=== PATIENT | male | born 1955 ===

== ENCOUNTER 2021-06-06 05:39 | Inpatient (IN) | payer MEDICAID, MEDICARE ==
[2021-06-06] VITALS (13 sets, daily range): BP systolic 105–136; BP diastolic 54–72
[~2021-06-06] VITALS: Ht 182.9 cm; Wt 114.3 kg
[2021-06-06] MEDS: FENTANYL-0.9 % NACL/PF 100 ML IV PRN ×2 (06:01→21:22)
[2021-06-06] MEDS: propofol 1000mg/100ml bottle 100 ML IV PRN ×2 (06:02→21:21)
--- NOTE | 2021-06-06 06:03 | NUR ---
dr. aceves and dr. dickerson at bedside preparing to place chest tube to right chest. Propofol and fentanyl.
--- NOTE | 2021-06-06 07:18 | NUR ---
RT AT BEDSIDE TO PERFORM ABG PER MD ORDER. SPO2 87% ON FIO2 100% ETT TO VENT AC MODE. Addendum: 06/06/21 at [address] PHILLIP AWARE OF SPO2 87%.
[2021-06-06 07:22] LABS: BASOPHILS % (AUTO) 0.1 % (0-1); EOSINOPHILS % (AUTO) 0 % (0-6); MONOCYTES # (AUTO) 0.8 X10'3 (0-0.9)
[2021-06-06 07:24] LABS: HEMATOCRIT 55.9 % (42.0-52.0); LYMPHOCYTES # (AUTO) 0.4 X10'3 (1.1-4.8); LYMPHOCYTES % (AUTO) 2.3 % (21-51); MEAN CORPUSCULAR HGB CONC 33.2 g/dL (33.0-36.5); MEAN CORPUSCULAR VOLUME 93.3 FL (78-98); MEAN PLATELET VOLUME 10.4 FL (7.4-10.4); MONOCYTES % (AUTO) 4.5 % (2-12); NEUTROPHILS # (AUTO) 16.8 X10'3 (1.8-7.7); NEUTROPHILS % (AUTO) 93.1 % (42-75); PLATELET COUNT 226 X10'3 (140-440); RED BLOOD COUNT 5.99 X10'6 (4.70-6.10); RED CELL DISTRIBUTION WIDTH 14.5 % (11.5-14.5)
[2021-06-06 07:27] LABS: HEMOGLOBIN 18.6 g/dl (14.0-17.9)
[2021-06-06 07:29] LABS: ABG BASE EXCESS -16.1 mmol/L (-2.0-2.0); ABG HCO3 16.5 mmol/L (22.0-26.0); ABG OXYGEN SATURATION 87.3 % (94-97); ABG PCO2 (T) 62.3 mmHg (35.0-48.0); ABG PO2 (T) 61.6 mmHg (75.0-100.0); ALLEN'S TEST POSITIVE; FCOHb 0.3 % (0.0-3.9); FMetHb 0.2 % (0.0-1.5); FO2Hb 86.9 % (94-97); PATIENT TEMPERATURE 35.5; RESPIRATORY RATE 22 b/min; TIDAL VOLUME 400 mL; TOTAL HEMOGLOBIN 19.8 G/dl (14.0-18.0)
[2021-06-06 07:39] LABS: ALANINE AMINOTRANSFERASE 91 U/L (12-78); ALBUMIN 2.2 G/DL (3.4-5.0); ALBUMIN/GLOBULIN RATIO 0.5 (1.1-1.5); ALKALINE PHOSPHATASE 81 IU/L (46-116); ANION GAP 17 (8-16); ASPARTATE AMINO TRANSFERASE 122 U/L (10-37); BILIRUBIN,TOTAL 0.6 MG/DL (0.1-1.0); BLOOD UREA NITROGEN 70 MG/DL (7-18); BUN/CREATININE RATIO 26.9 (5.4-32.0); CALCIUM 8.3 MG/DL (8.5-10.1); CHLORIDE 115 MMOL/L (99-107); SODIUM 152 MMOL/L (135-145); TOTAL PROTEIN 6.6 G/DL (6.4-8.2); TROPONIN I 0.27 NG/ML (0.0-0.05); eGFR 25 ML/MIN
[2021-06-06] MEDS ORDERED: potassium Cl 40MEQ/1/2NS 520ml 520 ML IV PRN ×2 (07:50)
[2021-06-06] MEDS ORDERED: morphine 4 MG/ML inj SYRINge IV PRN (07:50)
[2021-06-06] MEDS ORDERED: sodium phosphate inj. 30 MMOL in dextrose 5%-water 250 ML IV PRN (07:50)
[2021-06-06] MEDS ORDERED: albuterol 2.5 MG/3 ML nebule NEB PRN (07:50)
[2021-06-06] MEDS ORDERED: potassium Cl 40MEQ/250ML bag 270 ML IV PRN ×2 (07:50)
[2021-06-06] MEDS ORDERED: ondansetron/PF 4mg/2ml inj IV PRN (07:50)
[2021-06-06] MEDS ORDERED: Neutra Phos packet PO PRN (07:50)
[2021-06-06] MEDS ORDERED: magnesium Cl slow-release 64mg tablet PO PRN (07:50)
[2021-06-06] MEDS ORDERED: magnesium 2GM in 50ml NS 50 ML IV PRN (07:50)
[2021-06-06] MEDS ORDERED: sodium phosphate inj. 15 MMOL in dextrose 5%-water 250 ML IV PRN (07:50)
[2021-06-06] MEDS ORDERED: magnesium hydroxide 30ml (MOM) UD suspension PO PRN (07:50)
[2021-06-06] MEDS ORDERED: acetaminophen 325mg tablet PO PRN ×2 (07:50)
[2021-06-06] MEDS ORDERED: magnesium 4gm in 100ml NS 100 ML IV PRN (07:50)
[2021-06-06] MEDS ORDERED: morphine 2 MG/ML inj. syringe IV PRN (07:50)
[2021-06-06 07:51] LABS: GLUCOSE 474 MG/DL (70-104)
--- NOTE | 2021-06-06 07:55 | NUR ---
DR LIGHT AT BEDSIDE TO ASSESS THE PATIENT AT THIS TIME.
[2021-06-06] MEDS ORDERED: enoxaparin 60mg/0.6ml syringe SUBCUT SCH (08:00)
[2021-06-06] MEDS: docusate sod 100mg capsule PO SCH ×2 (08:00→20:00)
[2021-06-06] MEDS: normal saline 1000ml 1,000 ML IV SCH ×2 (08:42→19:22)
[2021-06-06] MEDS: famotidine/PF 10 mg/ml inj IV SCH ×2 (08:42→21:19)
--- NOTE | 2021-06-06 08:50 | NUR ---
DR DEE AT BEDSIDE TO ASSESS PAT AT THIS TIME.
--- NOTE | 2021-06-06 09:07 | NUR ---
[facility] [phone].
[2021-06-06 09:50] LABS: LARGE PLATELETS FEW; PLATELET ESTIMATE NORMAL
[2021-06-06] MEDS ORDERED: methylPREDNISolone sod succ 125mg/2ml vial IV SCH (10:15)
--- NOTE | 2021-06-06 10:30 | NUR ---
Patient arrived to floor and placed on bedside monitor. O2 sats in the 70s and x-ray obtained to determine possible dislodgement of chest tube. Per radiologist, small increase in pneumothorax and Dr. Shine at bedside to place 2nd chest tube.
--- NOTE | 2021-06-06 12:24 | NUR ---
Initial: Pt with COVID admit for acute respiratory failure, rhabdomyolysis, pneumothorax, and hyperkalemia. Noted pt with elevated BG of 474 mg/dL on admit, possibly r/t receiving Solumedrol. Pt intubated and documented with an OG tube in place, no TF consult at this time. No documentation of how current wt in EMR was obtained, TF recommendations below were calculated using IBW for estimated nutrient needs. Will continue to follow closely. Recommendations: 1) IF TF, continuous Vital AF via OG tube with goal rate of 75 mL/hr to provide 1800 mL total volume/day, 2160 kcal, 135 g protein, and 1460 mL water. Begin at 35 mL/hr and advance by 20 mL Q8H as tolerated to goal rate 2) IF TF, additional 200 mL water flush Q4H; monitor serum Na and adjust as appropriate 3) IF TF, prealbumin q Friday/ and daily scaled weights 4) Routine bowel care Addendum: 06/06/21 at [address] Amended: Links added.
[2021-06-06] MEDS ORDERED: sodium polystyrene sulfonate 15gm/60ml oral suspension PO ONE (13:00)
[2021-06-06] MEDS ORDERED: dextrose 50%-water 50ml dispensing syringe IV PRN (13:00)
[2021-06-06] MEDS ORDERED: calcium chloride inj. 1,000 MG in normal saline 100ml IV soln 100 ML IV ONE (13:00)
[2021-06-06] MEDS ORDERED: Insulin Reg/NS 100units/100mL 100 ML IV SCH (13:00)
[2021-06-06 13:17] LABS: BASOPHILS # (AUTO) 0.1 X10'3 (0-0.2); BASOPHILS % (AUTO) 0.3 % (0-1); EOSINOPHILS % (AUTO) 0.1 % (0-6); HEMATOCRIT 53.8 % (42.0-52.0); LYMPHOCYTES # (AUTO) 0.4 X10'3 (1.1-4.8); LYMPHOCYTES % (AUTO) 2.6 % (21-51); MEAN CORPUSCULAR HEMOGLOBIN 30.4 PG (27.0-31.0); MEAN CORPUSCULAR HGB CONC 31.5 g/dL (33.0-36.5); MEAN CORPUSCULAR VOLUME 96.4 FL (78-98); MEAN PLATELET VOLUME 10.2 FL (7.4-10.4); MONOCYTES # (AUTO) 0.6 X10'3 (0-0.9); MONOCYTES % (AUTO) 4.2 % (2-12); NEUTROPHILS # (AUTO) 14.4 X10'3 (1.8-7.7); NEUTROPHILS % (AUTO) 92.8 % (42-75); PLATELET COUNT 216 X10'3 (140-440); RED BLOOD COUNT 5.58 X10'6 (4.70-6.10); RED CELL DISTRIBUTION WIDTH 15.1 % (11.5-14.5); WHITE BLOOD COUNT 15.5 X10'3 (4.5-11.0)
[2021-06-06 13:29] LABS: CLARITY,URINE SLIGHTLY CLOUDY (Clear); GLUCOSE, URINE 500 mg/dl (Neg); KETONES,URINE NEGATIVE (Neg); LEUKOCYTE ESTERASE ,URINE NEGATIVE (Neg); NITRITES, URINE NEGATIVE (Neg); OCCULT BLOOD,URINE LARGE (Neg); PH,URINE 5.5 (4.8-8.0); PROTEIN,URINE 100 mg/dl (Neg)
[2021-06-06 13:31] LABS: UA COLLECTION TYPE FOLEY CATH
[2021-06-06 13:32] LABS: COLOR,URINE DARK YELLOW (Yellow)
[2021-06-06 13:37] LABS: BACTERIA,URINE FEW /HPF (Neg); SQUAMOUS EPITHELIAL CELL,UR FEW /LPF (FEW); WBC,URINE 0-4 /HPF (0-4)
[2021-06-06 13:38] LABS: AMORPHOUS URATES 2+; HYALINE CASTS 0-3 /LPF (NEGATIVE)
[2021-06-06] MEDS ORDERED: calcium chloride inj. 1,000 MG in normal saline 100ml IV soln 90 ML IV ONE (13:40)
[2021-06-06 13:41] LABS: D-DIMER 9.65 MG/L FEU (0-0.50)
[2021-06-06 13:42] LABS: ALANINE AMINOTRANSFERASE 84 U/L (12-78); ALBUMIN/GLOBULIN RATIO 0.5 (1.1-1.5); ALKALINE PHOSPHATASE 66 IU/L (46-116); ANION GAP 18 (8-16); ASPARTATE AMINO TRANSFERASE 139 U/L (10-37); BILIRUBIN,TOTAL 0.6 MG/DL (0.1-1.0); BLOOD UREA NITROGEN 80 MG/DL (7-18); CALCIUM 7.9 MG/DL (8.5-10.1); CHLORIDE 115 MMOL/L (99-107); CREATININE 2.96 MG/DL (0.60-1.10); SODIUM 150 MMOL/L (135-145); TOTAL CARBON DIOXIDE 17.4 MMOL/L (24-32); TOTAL PROTEIN 6.2 G/DL (6.4-8.2); eGFR 21 ML/MIN
[2021-06-06 13:52] LABS: C-REACTIVE PROTEIN 28.29 MG/DL (0.0-0.5)
[2021-06-06 14:17] LABS: GLUCOSE 494 MG/DL (70-104)
[2021-06-06 14:18] LABS: POTASSIUM 6.4 MMOL/L (3.5-5.1)
--- NOTE | 2021-06-06 14:30 | NUR ---
Critical K 6.4 and Glucose of 494. Kaexylate and Ca ordered. Insulin drip ordered for glucose.
[2021-06-06] MEDS: methylPREDNISolone sod succ/PF 40mg inj. IV SCH (15:23)
[2021-06-06] MEDS: CefTRIAXone 2gm/D5W 50ml BAG 50 ML IV SCH (15:42)
--- NOTE | 2021-06-06 16:30 | NUR ---
Dr. Shine aware patient's o2 saturation 90-94, 100% Fi02 and PEEP 14. Nephrology consult also obtained as MD is aware of decreased UO and elevated creatinine. Dr. Degroot to assess patient in the AM for possible dialysis if K not improved.
[2021-06-06] MEDS ORDERED: normal saline 1000ml 1,000 ML IVB ONE (16:45)
[2021-06-06] MEDS ORDERED: dextrose 50%-water 50ml dispensing syringe IV ONE (17:10)
[2021-06-06] MEDS ORDERED: sodium bicarbonate (8.4%) 1 mEq/ml syringe IV ONE (17:10)
[2021-06-06] MEDS ORDERED: insulin regular, human 10 units/0.1 ml syringe IV ONE (17:10)
--- NOTE | 2021-06-06 18:30 | NUR ---
Patient in room CICU 2009. I have received report from Km GUNDERSON and had the opportunity to ask questions and assume patient care.
--- NOTE | 2021-06-06 18:30 | NUR ---
Problems reprioritized. Patient report given, questions answered & plan of care reviewed with Elva GUNDERSON.
[2021-06-06] MEDS: enoxaparin 40mg/0.4ml syringe SUBCUT SCH (21:20)
[2021-06-06] MEDS: nystatin 15 GM powder TP SCH (21:21)
[2021-06-07] VITALS (24 sets, daily range): BP systolic 83–132; BP diastolic 46–77
[2021-06-07] MEDS: normal saline 1000ml 1,000 ML IV SCH (02:32)
[2021-06-07 03:29] LABS: BASOPHILS % (AUTO) 0.1 % (0-1); EOSINOPHILS % (AUTO) 0 % (0-6); HEMATOCRIT 50.1 % (42.0-52.0); HEMOGLOBIN 16.2 g/dl (14.0-17.9); LYMPHOCYTES # (AUTO) 0.4 X10'3 (1.1-4.8); LYMPHOCYTES % (AUTO) 3.1 % (21-51); MEAN CORPUSCULAR HEMOGLOBIN 30.4 PG (27.0-31.0); MEAN CORPUSCULAR HGB CONC 32.3 g/dL (33.0-36.5); MONOCYTES # (AUTO) 0.7 X10'3 (0-0.9); MONOCYTES % (AUTO) 5.7 % (2-12); NEUTROPHILS # (AUTO) 11.4 X10'3 (1.8-7.7); NEUTROPHILS % (AUTO) 91.1 % (42-75); PLATELET COUNT 205 X10'3 (140-440); RED BLOOD COUNT 5.33 X10'6 (4.70-6.10); RED CELL DISTRIBUTION WIDTH 14.9 % (11.5-14.5); WHITE BLOOD COUNT 12.6 X10'3 (4.5-11.0)
[2021-06-07] MEDS: FENTANYL-0.9 % NACL/PF 100 ML IV PRN ×2 (03:34→20:41)
[2021-06-07 03:44] LABS: D-DIMER 3.34 MG/L FEU (0-0.50); PARTIAL THROMBOPLASTIN TIME 31 SECONDS (22-32)
[2021-06-07 03:50] LABS: ALBUMIN 1.7 G/DL (3.4-5.0); ANION GAP 13 (8-16); BLOOD UREA NITROGEN 79 MG/DL (7-18); BUN/CREATININE RATIO 24.5 (5.4-32.0); CALCIUM 7.9 MG/DL (8.5-10.1); CHLORIDE 123 MMOL/L (99-107); CREATININE 3.23 MG/DL (0.60-1.10); GLUCOSE 99 MG/DL (70-104); PHOSPHORUS 6.9 MG/DL (2.3-4.5); POTASSIUM 5.2 MMOL/L (3.5-5.1); TOTAL CARBON DIOXIDE 22.8 MMOL/L (24-32); TRIGLYCERIDES 186 MG/DL (20-135); eGFR 19 ML/MIN
[2021-06-07 03:52] LABS: SODIUM 159 MMOL/L (135-145)
[2021-06-07 03:53] LABS: C-REACTIVE PROTEIN 26.46 MG/DL (0.0-0.5)
[2021-06-07 04:07] LABS: HEMOGLOBIN A1C 8.7 % (4.5-6.2)
[2021-06-07 04:08] LABS: ABG BASE EXCESS -9.6 mmol/L (-2.0-2.0); ABG HCO3 20.4 mmol/L (22.0-26.0); ABG PCO2 (T) 60.1 mmHg (35.0-48.0); ABG PO2 (T) 68.5 mmHg (75.0-100.0); ALLEN'S TEST POSITIVE; FCOHb 0.5 % (0.0-3.9); FMetHb 0.1 % (0.0-1.5); FO2Hb 92.4 % (94-97); PATIENT TEMPERATURE 36.6; PEEP 14 cm H2O; RESPIRATORY RATE 26 b/min; TIDAL VOLUME 450 mL; TOTAL HEMOGLOBIN 16.3 G/dl (14.0-18.0)
--- NOTE | 2021-06-07 06:21 | NUR ---
Problems reprioritized. Patient report given, questions answered & plan of care reviewed with Gloria GUNDERSON.
[2021-06-07] MEDS: docusate sod 100mg capsule PO SCH (08:00)
[2021-06-07 09:02] LABS: CREATINE KINASE 4422 U/L (39-308)
[2021-06-07] MEDS: CefTRIAXone 2gm/D5W 50ml BAG 50 ML IV SCH (09:38)
[2021-06-07] MEDS: nystatin 15 GM powder TP SCH ×2 (09:38→14:28)
[2021-06-07] MEDS: enoxaparin 40mg/0.4ml syringe SUBCUT SCH ×2 (09:38→20:41)
[2021-06-07] MEDS: sodium chloride 0.45% 1,000 ML IV SCH ×3 (09:38→20:41)
[2021-06-07] MEDS: famotidine/PF 10 mg/ml inj IV SCH ×2 (09:39→20:41)
[2021-06-07] MEDS: methylPREDNISolone sod succ/PF 40mg inj. IV SCH ×3 (09:39→17:29)
[2021-06-07] MEDS ORDERED: docusate sodium 100mg/10ml UD cup PO SCH (09:45)
[2021-06-07] MEDS ORDERED: insulin Lispro (HumaLOG) vial - multi-dose SQ SCH (10:15)
[2021-06-07] MEDS ORDERED: MESSAGE TO PHARMACY PO ONE (10:15)
[2021-06-07] MEDS ORDERED: dextrose ORAL solution 15 GM/59 ML bottle PO PRN ×2 (10:15)
[2021-06-07] MEDS ORDERED: glucagon, human recombinant 1mg kit SUBCUT PRN (10:15)
[2021-06-07] MEDS ORDERED: dextrose 50%-water 50ml dispensing syringe IV PRN ×2 (10:15)
[2021-06-07 10:56] LABS: ABG BASE EXCESS -10.7 mmol/L (-2.0-2.0); ABG HCO3 18.6 mmol/L (22.0-26.0); ABG OXYGEN SATURATION 89.9 % (94-97); ABG PCO2 (T) 53.6 mmHg (35.0-48.0); ABG PO2 (T) 59.6 mmHg (75.0-100.0); ALLEN'S TEST Modified; FCOHb 0.3 % (0.0-3.9); FMetHb 0.2 % (0.0-1.5); FO2Hb 89.5 % (94-97); PEEP 14 cm H2O; RESPIRATORY RATE 26 b/min; TIDAL VOLUME 450 mL; TOTAL HEMOGLOBIN 17.6 G/dl (14.0-18.0)
--- NOTE | 2021-06-07 11:52 | NUR ---
TF consult: Pt remains intubated, to start tube feeding today per MD at critical care rounds, TF recommendations below. Pt still without a scaled weight, will adjust TF recommendations as appropriate once scaled weight is obtained. Serum Na up to 159 MMOL/L today, pt started on 300 mL water flush per MD. Noted pt with A1c 8.7% though PMH unknown at this time given intubation. Pt would benefit from DM education once stable following extubation. Pt will need DM dx by physician prior to RD providing education IF this is a new diagnosis. Still no documented BM, pt with routine bowel care available however held d/t meds not being able to be crushed. D/w clinical pharmacist who will adjust rx as appropriate given pt with an OG tube. Noted wound care has been consulted for sacrum PU and IAD, pending assessment at this time. Will continue to follow closely and make recommendations as appropriate. Recommendations: 1) Continuous Vital AF via OG tube with goal rate of 75 mL/hr to provide 1800 mL total volume/day, 2160 kcal, 135 g protein, and 1460 mL water. 2) Additional 300 mL water flush Q4H per MD; monitor serum Na 3) Prealbumin q Friday/, daily scaled weights 4) Monitor for scaled weight and adjust TF recommendations as appropriate 5) Routine bowel care 6) DM education once stable following extubation, A1c 8.7% Addendum: 06/07/21 at [address] Amended: Links added.
[2021-06-07] MEDS ORDERED: UNABLE TO OBTAIN PO (11:57)
[2021-06-07 13:49] LABS: PREALBUMIN 6.1 MG/DL (19-36)
[2021-06-07] MEDS ORDERED: ringers solution, lacted 1,000 ML IV STA (14:18)
[2021-06-07] MEDS ORDERED: acetaminophen 325mg tablet OGT PRN ×2 (15:52)
[2021-06-07] MEDS ORDERED: dextrose ORAL solution 15 GM/59 ML bottle OGT PRN ×2 (15:52)
--- NOTE | 2021-06-07 18:30 | NUR ---
Patient in room CICU 2009. I have received report from Gloria GUNDERSON and had the opportunity to ask questions and assume patient care.
[2021-06-07] MEDS: propofol 1000mg/100ml bottle 100 ML IV PRN (19:40)
[2021-06-07] MEDS: docusate sodium 100mg/10ml UD cup OGT SCH (20:40)
[2021-06-07] MEDS: insulin regular, human U-100 3ml vial - multi-dose SQ SCH (21:17)
[2021-06-07] MEDS: insulin glargine (Lantus) pen - multi-dose SQ SCH (21:18)
[2021-06-08] VITALS (24 sets, daily range): BP systolic 83–122; BP diastolic 44–62
[2021-06-08] MEDS: propofol 1000mg/100ml bottle 100 ML IV PRN ×6 (02:31→23:35)
[2021-06-08] MEDS: nystatin 15 GM powder TP SCH ×4 (02:31→21:31)
[2021-06-08] MEDS: methylPREDNISolone sod succ/PF 40mg inj. IV SCH ×4 (02:36→23:37)
[2021-06-08 02:48] LABS: ABG BASE EXCESS -11.3 mmol/L (-2.0-2.0); ABG HCO3 17.5 mmol/L (22.0-26.0); ABG PCO2 (T) 47.7 mmHg (35.0-48.0); ABG PO2 (T) 187.7 mmHg (75.0-100.0); ALLEN'S TEST POSITIVE; FCOHb 0.4 % (0.0-3.9); FMetHb 0.3 % (0.0-1.5); FO2Hb 98.3 % (94-97); PATIENT TEMPERATURE 35.9; PEEP 14 cm H2O; RESPIRATORY RATE 26 b/min; TIDAL VOLUME 450 mL; TOTAL HEMOGLOBIN 15.2 G/dl (14.0-18.0)
[2021-06-08 03:08] LABS: BASOPHILS % (AUTO) 0.1 % (0-1); EOSINOPHILS % (AUTO) 0 % (0-6); HEMATOCRIT 44.8 % (42.0-52.0); HEMOGLOBIN 14.4 g/dl (14.0-17.9); LYMPHOCYTES # (AUTO) 0.3 X10'3 (1.1-4.8); MEAN CORPUSCULAR HEMOGLOBIN 30.4 PG (27.0-31.0); MEAN CORPUSCULAR HGB CONC 32.1 g/dL (33.0-36.5); MEAN CORPUSCULAR VOLUME 94.9 FL (78-98); MEAN PLATELET VOLUME 10.2 FL (7.4-10.4); MONOCYTES # (AUTO) 0.6 X10'3 (0-0.9); MONOCYTES % (AUTO) 5.7 % (2-12); NEUTROPHILS # (AUTO) 9.6 X10'3 (1.8-7.7); NEUTROPHILS % (AUTO) 91.2 % (42-75); PLATELET COUNT 144 X10'3 (140-440); RED BLOOD COUNT 4.73 X10'6 (4.70-6.10); RED CELL DISTRIBUTION WIDTH 15.2 % (11.5-14.5); WHITE BLOOD COUNT 10.5 X10'3 (4.5-11.0)
[2021-06-08 03:23] LABS: ALANINE AMINOTRANSFERASE 53 U/L (12-78); ALBUMIN 1.4 G/DL (3.4-5.0); ALBUMIN/GLOBULIN RATIO 0.3 (1.1-1.5); ALKALINE PHOSPHATASE 54 IU/L (46-116); ANION GAP 15 (8-16); ASPARTATE AMINO TRANSFERASE 79 U/L (10-37); BILIRUBIN,TOTAL 0.4 MG/DL (0.1-1.0); BLOOD UREA NITROGEN 102 MG/DL (7-18); C-REACTIVE PROTEIN 15.24 MG/DL (0.0-0.5); CHLORIDE 117 MMOL/L (99-107); CREATININE 3.93 MG/DL (0.60-1.10); GLUCOSE 267 MG/DL (70-104); MAGNESIUM 2.9 MG/DL (1.5-2.4); PHOSPHORUS 7.3 MG/DL (2.3-4.5); POTASSIUM 5.5 MMOL/L (3.5-5.1); SODIUM 150 MMOL/L (135-145); TOTAL PROTEIN 5.9 G/DL (6.4-8.2); eGFR 15 ML/MIN
[2021-06-08 03:37] LABS: D-DIMER 4.26 MG/L FEU (0-0.50); PARTIAL THROMBOPLASTIN TIME 36 SECONDS (22-32)
[2021-06-08] MEDS: insulin regular, human U-100 3ml vial - multi-dose SQ SCH ×4 (03:52→21:27)
[2021-06-08] MEDS: FENTANYL-0.9 % NACL/PF 100 ML IV PRN ×4 (04:23→22:28)
[2021-06-08] MEDS: sodium chloride 0.45% 1,000 ML IV SCH (06:40)
--- NOTE | 2021-06-08 07:10 | NUR ---
Problems reprioritized. Patient report given, questions answered & plan of care reviewed with Germain GUNDERSON.
[2021-06-08] MEDS ORDERED: lactulose 20gm/30ml cup OGT PRN (07:50)
[2021-06-08] MEDS ORDERED: bisacodyl 10mg suppository rectal RC PRN (07:50)
[2021-06-08] MEDS: famotidine/PF 10 mg/ml inj IV SCH ×2 (09:39→19:49)
[2021-06-08] MEDS: docusate sodium 100mg/10ml UD cup OGT SCH ×2 (09:39→19:49)
[2021-06-08] MEDS: enoxaparin 40mg/0.4ml syringe SUBCUT SCH (09:40)
--- NOTE | 2021-06-08 10:38 | NUR ---
Chest tubes to air seal and peep to [address] Shine.
--- NOTE | 2021-06-08 11:02 | NUR ---
Geovani with Dr. Ruiz regarding CVVH, requests Dr. Shine to place Gary catheter. Addendum: 06/08/21 at 1231 by Germain Gonzales RN 1230: Update: no need to place Gary at this time. Orders received.
[2021-06-08 12:06] LABS: CREATINE KINASE 2835 U/L (39-308)
[2021-06-08] MEDS: sodium bicarbonate (8.4%) inj. 100 MEQ in dextrose 5%-water 1,000 ML IV SCH (13:33)
[2021-06-08] MEDS: SODIUM ZIRCONIUM CYCLOSILICATE 10 GM POWD.PACK PO SCH ×2 (13:57→21:21)
[2021-06-08] MEDS: heparin, porcine 5000 units/ml vial SQ SCH ×2 (15:43→23:37)
[2021-06-08] MEDS: insulin glargine (Lantus) pen - multi-dose SQ SCH (21:29)
[2021-06-09] VITALS (24 sets, daily range): BP systolic 90–125; BP diastolic 49–67
[2021-06-09] MEDS: sodium bicarbonate (8.4%) inj. 100 MEQ in dextrose 5%-water 1,000 ML IV SCH ×3 (00:43→11:53)
[2021-06-09 03:11] LABS: BASOPHILS % (AUTO) 0.1 % (0-1); EOSINOPHILS % (AUTO) 0 % (0-6); HEMATOCRIT 40.4 % (42.0-52.0); HEMOGLOBIN 13.4 g/dl (14.0-17.9); LYMPHOCYTES # (AUTO) 0.2 X10'3 (1.1-4.8); LYMPHOCYTES % (AUTO) 2.2 % (21-51); MEAN CORPUSCULAR HEMOGLOBIN 30.5 PG (27.0-31.0); MEAN CORPUSCULAR HGB CONC 33.2 g/dL (33.0-36.5); MEAN CORPUSCULAR VOLUME 92.1 FL (78-98); MEAN PLATELET VOLUME 10.5 FL (7.4-10.4); MONOCYTES # (AUTO) 0.6 X10'3 (0-0.9); MONOCYTES % (AUTO) 6.7 % (2-12); NEUTROPHILS # (AUTO) 8.2 X10'3 (1.8-7.7); PLATELET COUNT 139 X10'3 (140-440); RED BLOOD COUNT 4.38 X10'6 (4.70-6.10); RED CELL DISTRIBUTION WIDTH 14.7 % (11.5-14.5)
[2021-06-09] MEDS: insulin regular, human U-100 3ml vial - multi-dose SQ SCH ×4 (03:12→23:58)
[2021-06-09 03:13] LABS: ABG BASE EXCESS -7.6 mmol/L (-2.0-2.0); ABG HCO3 20.3 mmol/L (22.0-26.0); ABG OXYGEN SATURATION 94.5 % (94-97); ABG PCO2 (T) 48.7 mmHg (35.0-48.0); ABG PO2 (T) 72.3 mmHg (75.0-100.0); ALLEN'S TEST POSITIVE; FCOHb 0.5 % (0.0-3.9); FMetHb 0.2 % (0.0-1.5); FO2Hb 93.8 % (94-97); PATIENT TEMPERATURE 36.1; PEEP 10 cm H2O; RESPIRATORY RATE 26 b/min; TIDAL VOLUME 450 mL
[2021-06-09 03:24] LABS: D-DIMER 1.91 MG/L FEU (0-0.50); PARTIAL THROMBOPLASTIN TIME 33 SECONDS (22-32)
[2021-06-09 03:28] LABS: ALANINE AMINOTRANSFERASE 46 U/L (12-78); ALBUMIN 1.3 G/DL (3.4-5.0); ALBUMIN/GLOBULIN RATIO 0.4 (1.1-1.5); ALKALINE PHOSPHATASE 59 IU/L (46-116); ANION GAP 9 (8-16); ASPARTATE AMINO TRANSFERASE 55 U/L (10-37); BILIRUBIN,TOTAL 0.3 MG/DL (0.1-1.0); BLOOD UREA NITROGEN 112 MG/DL (7-18); BUN/CREATININE RATIO 27.1 (5.4-32.0); CALCIUM 6.5 MG/DL (8.5-10.1); CHLORIDE 114 MMOL/L (99-107); CREATININE 4.14 MG/DL (0.60-1.10); GLUCOSE 406 MG/DL (70-104); POTASSIUM 5.3 MMOL/L (3.5-5.1); SODIUM 146 MMOL/L (135-145); TOTAL CARBON DIOXIDE 23.2 MMOL/L (24-32); eGFR 14 ML/MIN
[2021-06-09 03:36] LABS: C-REACTIVE PROTEIN 10.01 MG/DL (0.0-0.5); MAGNESIUM 2.9 MG/DL (1.5-2.4); PHOSPHORUS 6.3 MG/DL (2.3-4.5)
[2021-06-09 03:40] LABS: CREATINE KINASE 2452 U/L (39-308)
[2021-06-09] MEDS: FENTANYL-0.9 % NACL/PF 100 ML IV PRN ×4 (04:43→19:01)
[2021-06-09] MEDS: propofol 1000mg/100ml bottle 100 ML IV PRN ×4 (05:08→23:46)
[2021-06-09] MEDS: famotidine/PF 10 mg/ml inj IV SCH ×2 (09:43→20:17)
[2021-06-09] MEDS: methylPREDNISolone sod succ/PF 40mg inj. IV SCH ×3 (09:43→23:44)
[2021-06-09] MEDS: docusate sodium 100mg/10ml UD cup OGT SCH ×2 (09:43→20:17)
[2021-06-09] MEDS: nystatin 15 GM powder TP SCH ×3 (09:44→22:12)
[2021-06-09] MEDS: heparin, porcine 5000 units/ml vial SQ SCH ×3 (09:44→23:45)
[2021-06-09] MEDS: SODIUM ZIRCONIUM CYCLOSILICATE 10 GM POWD.PACK PO SCH ×3 (09:45→22:11)
[2021-06-09] MEDS ORDERED: dextrose 50%-water 50ml dispensing syringe IV PRN (11:00)
--- NOTE | 2021-06-09 13:15 | NUR ---
Reassessment: Pt remains intubated. Noted TF hasn't made it to goal rate, previously up to 55 mL/hr though currently running at 40 mL/hr. Tolerance to TF varies with GRV range of 125-850 mL over the last 24 hours, with 350 mL GRV at most recent check. Still no documented BM since admit. Pt receiving routine Colace with first dose of PRN Lactulose and Dulcolax suppository given today. Hopeful that tolerance to TF will improve as constipation resolves. Noted per MD note pt possibly to start dialysis in the future though not initiated at this time. MD sidra CHILEL adjust TF recommendations if needed if dialysis is initiated. 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 Will continue to follow closely and make recommendations as appropriate. Recommendations: 1) Continuous Vital AF via OG tube with goal rate of 75 mL/hr to provide 1800 mL total volume/day, 2160 kcal, 135 g protein, and 1460 mL water. 2) Additional 300 mL water flush Q4H per MD; monitor serum Na 3) Prealbumin q Friday/, daily scaled weights 4) Monitor for scaled weight and possible dialysis and adjust TF recommendations as appropriate 5) Routine bowel care 6) DM education once stable following extubation, A1c 8.7% Addendum: 06/09/21 at [address] Amended: Links added.
[2021-06-09] MEDS: Insulin Reg/NS 100units/100mL 100 ML IV SCH ×4 (13:44→21:33)
[2021-06-09] MEDS ORDERED: albumin (human) 25% 100 ML IV solution IV ONE (16:00)
[2021-06-09] MEDS: insulin glargine (Lantus) pen - multi-dose SQ SCH (21:00)
[2021-06-10] VITALS (24 sets, daily range): BP systolic 91–178; BP diastolic 46–86
[2021-06-10] MEDS: Insulin Reg/NS 100units/100mL 100 ML IV SCH ×3 (00:49→08:58)
[2021-06-10] MEDS: FENTANYL-0.9 % NACL/PF 100 ML IV PRN ×5 (00:50→23:50)
[2021-06-10 02:36] LABS: ABG BASE EXCESS -2.6 mmol/L (-2.0-2.0); ABG HCO3 25.9 mmol/L (22.0-26.0); ABG OXYGEN SATURATION 96.8 % (94-97); ABG PCO2 (T) 58.6 mmHg (35.0-48.0); ABG PO2 (T) 87.7 mmHg (75.0-100.0); ALLEN'S TEST POSITIVE; FCOHb 0.7 % (0.0-3.9); FMetHb 0.2 % (0.0-1.5); FO2Hb 95.9 % (94-97); PEEP 10 cm H2O; RESPIRATORY RATE 26 b/min; TIDAL VOLUME 450 mL
[2021-06-10] MEDS: sodium bicarbonate (8.4%) inj. 100 MEQ in dextrose 5%-water 1,000 ML IV SCH ×3 (03:57→19:34)
[2021-06-10 03:59] LABS: BASOPHILS % (AUTO) 0.1 % (0-1); EOSINOPHILS % (AUTO) 0 % (0-6); HEMATOCRIT 35.8 % (42.0-52.0); HEMOGLOBIN 11.5 g/dl (14.0-17.9); LYMPHOCYTES # (AUTO) 0.8 X10'3 (1.1-4.8); LYMPHOCYTES % (AUTO) 6.2 % (21-51); MEAN CORPUSCULAR HEMOGLOBIN 30.2 PG (27.0-31.0); MEAN CORPUSCULAR HGB CONC 32.1 g/dL (33.0-36.5); MEAN CORPUSCULAR VOLUME 93.8 FL (78-98); MEAN PLATELET VOLUME 7.7 FL (7.4-10.4); MONOCYTES # (AUTO) 0.8 X10'3 (0-0.9); NEUTROPHILS # (AUTO) 11.3 X10'3 (1.8-7.7); NEUTROPHILS % (AUTO) 87.7 % (42-75); PLATELET COUNT 235 X10'3 (140-440); RED BLOOD COUNT 3.82 X10'6 (4.70-6.10); RED CELL DISTRIBUTION WIDTH 14.3 % (11.5-14.5); WHITE BLOOD COUNT 12.8 X10'3 (4.5-11.0)
[2021-06-10 04:03] LABS: D-DIMER 1.42 MG/L FEU (0-0.50); PARTIAL THROMBOPLASTIN TIME 37 SECONDS (22-32)
[2021-06-10 04:10] LABS: ALANINE AMINOTRANSFERASE 77 U/L (12-78); ALBUMIN/GLOBULIN RATIO 0.5 (1.1-1.5); ALKALINE PHOSPHATASE 76 IU/L (46-116); ANION GAP 12 (8-16); ASPARTATE AMINO TRANSFERASE 36 U/L (10-37); BILIRUBIN,TOTAL 0.5 MG/DL (0.1-1.0); BLOOD UREA NITROGEN 24 MG/DL (7-18); BUN/CREATININE RATIO 31.6 (5.4-32.0); C-REACTIVE PROTEIN 8.57 MG/DL (0.0-0.5); CALCIUM 8.3 MG/DL (8.5-10.1); CHLORIDE 112 MMOL/L (99-107); CREATINE KINASE 18 U/L (39-308); CREATININE 0.76 MG/DL (0.60-1.10); GLUCOSE 113 MG/DL (70-104); MAGNESIUM 1.7 MG/DL (1.5-2.4); PHOSPHORUS 2.4 MG/DL (2.3-4.5); SODIUM 149 MMOL/L (135-145); TOTAL CARBON DIOXIDE 24.9 MMOL/L (24-32); TOTAL PROTEIN 5.9 G/DL (6.4-8.2); eGFR > 90 ML/MIN
[2021-06-10 04:24] LABS: POTASSIUM 2.7 MMOL/L (3.5-5.1)
[2021-06-10] MEDS: propofol 1000mg/100ml bottle 100 ML IV PRN ×3 (05:10→18:23)
--- NOTE | 2021-06-10 06:30 | NUR ---
Propofol at the start of this shift was running at 35 mcg/kg/min, or 18.9 mg/hr. Was not increased at this time by this RN.
[2021-06-10] MEDS: nystatin 15 GM powder TP SCH ×3 (08:10→21:02)
[2021-06-10] MEDS: docusate sodium 100mg/10ml UD cup OGT SCH ×2 (08:10→21:01)
[2021-06-10] MEDS: methylPREDNISolone sod succ/PF 40mg inj. IV SCH ×3 (08:10→23:54)
[2021-06-10] MEDS: famotidine/PF 10 mg/ml inj IV SCH ×2 (08:11→21:02)
[2021-06-10] MEDS: heparin, porcine 5000 units/ml vial SQ SCH ×3 (08:11→23:55)
[2021-06-10] MEDS ORDERED: potassium Cl 20 mEq SR tablet PO STA (08:31)
[2021-06-10] MEDS: DOPamine 400mg/D5W 250ml 250 ML IV SCH ×2 (08:38→23:19)
[2021-06-10] MEDS: SODIUM ZIRCONIUM CYCLOSILICATE 10 GM POWD.PACK PO SCH ×3 (08:38→21:01)
[2021-06-10 14:29] LABS: BASOPHILS % (AUTO) 0 % (0-1); EOSINOPHILS % (AUTO) 0 % (0-6); HEMATOCRIT 38.3 % (42.0-52.0); HEMOGLOBIN 12.9 g/dl (14.0-17.9); LYMPHOCYTES # (AUTO) 0.2 X10'3 (1.1-4.8); LYMPHOCYTES % (AUTO) 2.2 % (21-51); MEAN CORPUSCULAR HEMOGLOBIN 30.4 PG (27.0-31.0); MEAN CORPUSCULAR HGB CONC 33.6 g/dL (33.0-36.5); MEAN CORPUSCULAR VOLUME 90.7 FL (78-98); MEAN PLATELET VOLUME 9.5 FL (7.4-10.4); MONOCYTES % (AUTO) 9.5 % (2-12); NEUTROPHILS # (AUTO) 8.8 X10'3 (1.8-7.7); NEUTROPHILS % (AUTO) 88.3 % (42-75); PLATELET COUNT 120 X10'3 (140-440); RED BLOOD COUNT 4.22 X10'6 (4.70-6.10); RED CELL DISTRIBUTION WIDTH 14.3 % (11.5-14.5)
[2021-06-10 14:31] LABS: PARTIAL THROMBOPLASTIN TIME 29 SECONDS (22-32)
[2021-06-10 14:36] LABS: ALANINE AMINOTRANSFERASE 64 U/L (12-78); ALBUMIN 1.2 G/DL (3.4-5.0); ALBUMIN/GLOBULIN RATIO 0.3 (1.1-1.5); ALKALINE PHOSPHATASE 67 IU/L (46-116); ANION GAP 8 (8-16); ASPARTATE AMINO TRANSFERASE 96 U/L (10-37); BILIRUBIN,TOTAL 0.4 MG/DL (0.1-1.0); BLOOD UREA NITROGEN 105 MG/DL (7-18); BUN/CREATININE RATIO 32.8 (5.4-32.0); CALCIUM 6.2 MG/DL (8.5-10.1); CHLORIDE 112 MMOL/L (99-107); GLUCOSE 125 MG/DL (70-104); POTASSIUM 4.5 MMOL/L (3.5-5.1); SODIUM 148 MMOL/L (135-145); TOTAL PROTEIN 4.7 G/DL (6.4-8.2); eGFR 19 ML/MIN
[2021-06-10 14:55] LABS: CREATINE KINASE 2252 U/L (39-308); MAGNESIUM 2.9 MG/DL (1.5-2.4); PHOSPHORUS 5.2 MG/DL (2.3-4.5)
[2021-06-10 15:17] LABS: C-REACTIVE PROTEIN 3.78 MG/DL (0.0-0.5)
[2021-06-10 15:23] LABS: TOTAL CELLS COUNTED 100
[2021-06-10 15:24] LABS: PLATELET ESTIMATE DECREASED
[2021-06-10] MEDS: insulin regular, human U-100 3ml vial - multi-dose SQ SCH (21:08)
[2021-06-10] MEDS: insulin glargine (Lantus) pen - multi-dose SQ SCH (21:09)
[2021-06-11] VITALS (23 sets, daily range): BP systolic 82–168; BP diastolic 42–95
[2021-06-11] MEDS: insulin regular, human U-100 3ml vial - multi-dose SQ SCH ×2 (02:15→09:18)
[2021-06-11 02:48] LABS: ABG BASE EXCESS 1.2 mmol/L (-2.0-2.0); ABG OXYGEN SATURATION 93.5 % (94-97); ABG PCO2 (T) 55.2 mmHg (35.0-48.0); ABG PO2 (T) 59.4 mmHg (75.0-100.0); ALLEN'S TEST POSITIVE; FCOHb 0.6 % (0.0-3.9); FMetHb 0.1 % (0.0-1.5); FO2Hb 92.8 % (94-97); PATIENT TEMPERATURE 35.3; PEEP 10 cm H2O; RESPIRATORY RATE 26 b/min; TIDAL VOLUME 500 mL; TOTAL HEMOGLOBIN 14.8 G/dl (14.0-18.0)
[2021-06-11 03:14] LABS: ALANINE AMINOTRANSFERASE 124 U/L (12-78); ALBUMIN 1.3 G/DL (3.4-5.0); ALBUMIN/GLOBULIN RATIO 0.3 (1.1-1.5); ALKALINE PHOSPHATASE 92 IU/L (46-116); ANION GAP 10 (8-16); ASPARTATE AMINO TRANSFERASE 201 U/L (10-37); BILIRUBIN,TOTAL 0.6 MG/DL (0.1-1.0); BLOOD UREA NITROGEN 103 MG/DL (7-18); BUN/CREATININE RATIO 32.8 (5.4-32.0); CALCIUM 6.6 MG/DL (8.5-10.1); CHLORIDE 107 MMOL/L (99-107); CREATININE 3.14 MG/DL (0.60-1.10); GLUCOSE 303 MG/DL (70-104); POTASSIUM 4.3 MMOL/L (3.5-5.1); SODIUM 146 MMOL/L (135-145); TOTAL CARBON DIOXIDE 28.7 MMOL/L (24-32); TOTAL PROTEIN 5.5 G/DL (6.4-8.2); eGFR 20 ML/MIN
[2021-06-11 03:18] LABS: HEMATOCRIT 44.5 % (42.0-52.0); HEMOGLOBIN 14.8 g/dl (14.0-17.9); MEAN CORPUSCULAR HGB CONC 33.3 g/dL (33.0-36.5); MEAN PLATELET VOLUME 10.4 FL (7.4-10.4); PLATELET COUNT 119 X10'3 (140-440); RED BLOOD COUNT 4.78 X10'6 (4.70-6.10); RED CELL DISTRIBUTION WIDTH 14.6 % (11.5-14.5); WHITE BLOOD COUNT 9.4 X10'3 (4.5-11.0)
[2021-06-11 03:20] LABS: D-DIMER 3.66 MG/L FEU (0-0.50); PARTIAL THROMBOPLASTIN TIME 26 SECONDS (22-32)
[2021-06-11 03:24] LABS: C-REACTIVE PROTEIN 3.95 MG/DL (0.0-0.5); MAGNESIUM 3.1 MG/DL (1.5-2.4); PHOSPHORUS 6.4 MG/DL (2.3-4.5); PREALBUMIN 17.6 MG/DL (19-36)
[2021-06-11 03:26] LABS: CREATINE KINASE 2594 U/L (39-308)
[2021-06-11] MEDS: FENTANYL-0.9 % NACL/PF 100 ML IV PRN ×3 (03:36→20:21)
[2021-06-11] MEDS: propofol 1000mg/100ml bottle 100 ML IV PRN ×3 (03:37→20:22)
[2021-06-11 05:51] LABS: TOTAL CELLS COUNTED 100
[2021-06-11 05:52] LABS: PLATELET ESTIMATE DECREASED; SMUDGE CELLS 2+
[2021-06-11 05:54] LABS: BURR CELLS 1+; TOXIC VACUOLATION FEW
[2021-06-11] MEDS: famotidine/PF 10 mg/ml inj IV SCH ×2 (08:35→22:26)
[2021-06-11] MEDS: methylPREDNISolone sod succ/PF 40mg inj. IV SCH ×2 (08:36→15:57)
[2021-06-11] MEDS: heparin, porcine 5000 units/ml vial SQ SCH ×2 (08:36→15:57)
[2021-06-11] MEDS: docusate sodium 100mg/10ml UD cup OGT SCH ×2 (08:36→22:25)
[2021-06-11] MEDS: nystatin 15 GM powder TP SCH ×3 (08:36→22:35)
[2021-06-11] MEDS: SODIUM ZIRCONIUM CYCLOSILICATE 10 GM POWD.PACK PO SCH ×3 (08:36→22:25)
--- NOTE | 2021-06-11 11:00 | NUR ---
desat to 83 when layed flat to reposition. did not recover. proned with sao2 to 93
[2021-06-11 11:24] LABS: TRIGLYCERIDES 244 MG/DL (20-135)
--- NOTE | 2021-06-11 11:47 | NUR ---
F/u 06/12: Noted pt TF remains at 30-40ml/hr and not advanced to goal w/ GRV WNL since 06/09 2 days; RANJANA reviewed w/ pharmacist in charge owner and lay ups assembler. TF to increase to goal as tolerated per MD; RANJANA d/w pt RN. Addendum: 06/11/21 at [address] Amended: Links added.
[2021-06-11] MEDS: magnesium citrate 296ml oral solution PO SCH (12:57)
--- NOTE | 2021-06-11 13:48 | NUR ---
bg over 400 insulin gtt restarted at 10u/hr
[2021-06-11] MEDS: DOPamine 400mg/D5W 250ml 250 ML IV SCH (14:08)
[2021-06-11] MEDS ORDERED: insulin Lispro (HumaLOG) vial - multi-dose SQ SCH (14:35)
[2021-06-11] MEDS: Insulin Reg/NS 100units/100mL 100 ML IV SCH (22:31)
[2021-06-11] MEDS: insulin glargine (Lantus) pen - multi-dose SQ SCH (22:34)
[2021-06-12] VITALS (24 sets, daily range): BP systolic 94–174; BP diastolic 54–121
[2021-06-12] MEDS: methylPREDNISolone sod succ/PF 40mg inj. IV SCH ×3 (00:12→16:21)
[2021-06-12] MEDS: heparin, porcine 5000 units/ml vial SQ SCH ×3 (00:13→16:21)
[2021-06-12] MEDS: FENTANYL-0.9 % NACL/PF 100 ML IV PRN ×2 (02:24→17:10)
[2021-06-12] MEDS: propofol 1000mg/100ml bottle 100 ML IV PRN ×3 (02:24→20:32)
[2021-06-12] MEDS: Insulin Reg/NS 100units/100mL 100 ML IV SCH (02:30)
[2021-06-12 03:14] LABS: ABG BASE EXCESS 8.2 mmol/L (-2.0-2.0); ABG HCO3 36.3 mmol/L (22.0-26.0); ABG OXYGEN SATURATION 97.5 % (94-97); ABG PCO2 (T) 64.8 mmHg (35.0-48.0); ABG PO2 (T) 98.8 mmHg (75.0-100.0); ALLEN'S TEST POSITIVE; FCOHb 0.6 % (0.0-3.9); FMetHb 0.2 % (0.0-1.5); FO2Hb 96.7 % (94-97); PATIENT TEMPERATURE 36.7; PEEP 10 cm H2O; RESPIRATORY RATE 26 b/min; TIDAL VOLUME 500 mL; TOTAL HEMOGLOBIN 14.6 G/dl (14.0-18.0)
[2021-06-12 03:34] LABS: LYMPHOCYTES # (AUTO) 0.1 X10'3 (1.1-4.8); MEAN CORPUSCULAR VOLUME 91.5 FL (78-98); MONOCYTES # (AUTO) 0.3 X10'3 (0-0.9); NEUTROPHILS # (AUTO) 10.8 X10'3 (1.8-7.7); RED CELL DISTRIBUTION WIDTH 14.4 % (11.5-14.5); WHITE BLOOD COUNT 11.3 X10'3 (4.5-11.0)
[2021-06-12 03:36] LABS: BASOPHILS % (AUTO) 0.1 % (0-1); EOSINOPHILS % (AUTO) 0.1 % (0-6); HEMATOCRIT 42.2 % (42.0-52.0); HEMOGLOBIN 13.8 g/dl (14.0-17.9); LYMPHOCYTES % (AUTO) 1.2 % (21-51); MEAN CORPUSCULAR HGB CONC 32.8 g/dL (33.0-36.5); MEAN PLATELET VOLUME 10.2 FL (7.4-10.4); MONOCYTES % (AUTO) 2.5 % (2-12); NEUTROPHILS % (AUTO) 96.1 % (42-75); PLATELET COUNT 120 X10'3 (140-440); RED BLOOD COUNT 4.61 X10'6 (4.70-6.10)
[2021-06-12 03:45] LABS: D-DIMER 3.47 MG/L FEU (0-0.50); PARTIAL THROMBOPLASTIN TIME 26 SECONDS (22-32)
[2021-06-12 03:57] LABS: ALANINE AMINOTRANSFERASE 125 U/L (12-78); ALBUMIN 1.4 G/DL (3.4-5.0); ALBUMIN/GLOBULIN RATIO 0.3 (1.1-1.5); ALKALINE PHOSPHATASE 105 IU/L (46-116); ANION GAP 5 (8-16); ASPARTATE AMINO TRANSFERASE 106 U/L (10-37); BILIRUBIN,TOTAL 0.4 MG/DL (0.1-1.0); BLOOD UREA NITROGEN 88 MG/DL (7-18); BUN/CREATININE RATIO 41.1 (5.4-32.0); C-REACTIVE PROTEIN 21.05 MG/DL (0.0-0.5); CALCIUM 6.9 MG/DL (8.5-10.1); CHLORIDE 112 MMOL/L (99-107); CREATININE 2.14 MG/DL (0.60-1.10); GLUCOSE 143 MG/DL (70-104); MAGNESIUM 3.3 MG/DL (1.5-2.4); PHOSPHORUS 3.4 MG/DL (2.3-4.5); POTASSIUM 4.4 MMOL/L (3.5-5.1); SODIUM 152 MMOL/L (135-145); TOTAL CARBON DIOXIDE 34.7 MMOL/L (24-32); TOTAL PROTEIN 5.7 G/DL (6.4-8.2); eGFR 31 ML/MIN
[2021-06-12 04:04] LABS: CREATINE KINASE 1529 U/L (39-308)
[2021-06-12] MEDS: DOPamine 400mg/D5W 250ml 250 ML IV SCH ×2 (04:57→19:46)
--- NOTE | 2021-06-12 06:37 | NUR ---
Problems reprioritized. Patient report given, questions answered & plan of care reviewed with Mary GUNDERSON.
[2021-06-12] MEDS: docusate sodium 100mg/10ml UD cup OGT SCH ×2 (07:26→20:32)
[2021-06-12] MEDS: famotidine/PF 10 mg/ml inj IV SCH ×2 (07:26→20:32)
[2021-06-12] MEDS: SODIUM ZIRCONIUM CYCLOSILICATE 10 GM POWD.PACK PO SCH (07:37)
[2021-06-12] MEDS: nystatin 15 GM powder TP SCH ×3 (08:00→22:12)
[2021-06-12] MEDS: insulin regular, human U-100 3ml vial - multi-dose SQ SCH ×3 (09:18→22:10)
[2021-06-12] MEDS ORDERED: insulin glargine (Lantus) pen - multi-dose SQ ONE (10:20)
--- NOTE | 2021-06-12 11:32 | NUR ---
Reassessment: Pt remains intubated and tolerating TF at goal rate with GRV WNL. Still no documented BM. Pt receiving routine Colace and three doses of Mag-Citrate which started 06/11. Will continue to follow closely. Recommendations: 1) Continuous Vital AF via OG tube with goal rate of 75 mL/hr to provide 1800 mL total volume/day, 2160 kcal, 135 g protein, and 1460 mL water. 2) Additional 300 mL water flush Q4H per MD; monitor serum Na 3) Prealbumin q Friday/, daily scaled weights 4) Monitor for scaled weight and possible dialysis and adjust TF recommendations as appropriate 5) Routine bowel care 6) DM education once stable following extubation, A1c 8.7% Addendum: 06/12/21 at [address] Amended: Links added.
[2021-06-12] MEDS: magnesium citrate 296ml oral solution PO SCH (16:23)
[2021-06-12] MEDS ORDERED: insulin glargine (Lantus) pen - multi-dose SQ SCH (21:00)
[2021-06-13] VITALS (16 sets, daily range): BP systolic 86–173; BP diastolic 51–98
[2021-06-13] MEDS: methylPREDNISolone sod succ/PF 40mg inj. IV SCH ×3 (00:47→15:10)
[2021-06-13] MEDS: heparin, porcine 5000 units/ml vial SQ SCH ×3 (00:48→15:10)
[2021-06-13] MEDS: insulin regular, human U-100 3ml vial - multi-dose SQ SCH (03:23)
[2021-06-13 03:31] LABS: ABG BASE EXCESS 11.5 mmol/L (-2.0-2.0); ABG HCO3 38.6 mmol/L (22.0-26.0); ABG OXYGEN SATURATION 92.3 % (94-97); ABG PCO2 (T) 59.7 mmHg (35.0-48.0); ABG PO2 (T) 61.2 mmHg (75.0-100.0); ALLEN'S TEST POSITIVE; FCOHb 0.7 % (0.0-3.9); FMetHb 0.3 % (0.0-1.5); FO2Hb 91.4 % (94-97); PATIENT TEMPERATURE 36.7; PEEP 12 cm H2O; RESPIRATORY RATE 26 b/min; TIDAL VOLUME 500 mL; TOTAL HEMOGLOBIN 14.9 G/dl (14.0-18.0)
[2021-06-13] MEDS: FENTANYL-0.9 % NACL/PF 100 ML IV PRN (04:20)
[2021-06-13 04:35] LABS: BASOPHILS % (AUTO) 0.1 % (0-1); EOSINOPHILS % (AUTO) 0.1 % (0-6); HEMATOCRIT 42.3 % (42.0-52.0); HEMOGLOBIN 13.9 g/dl (14.0-17.9); LYMPHOCYTES # (AUTO) 0.2 X10'3 (1.1-4.8); LYMPHOCYTES % (AUTO) 2.1 % (21-51); MEAN CORPUSCULAR HEMOGLOBIN 30.2 PG (27.0-31.0); MEAN CORPUSCULAR HGB CONC 32.9 g/dL (33.0-36.5); MEAN CORPUSCULAR VOLUME 91.9 FL (78-98); MEAN PLATELET VOLUME 11.6 FL (7.4-10.4); MONOCYTES # (AUTO) 0.4 X10'3 (0-0.9); NEUTROPHILS # (AUTO) 11.2 X10'3 (1.8-7.7); NEUTROPHILS % (AUTO) 94.7 % (42-75); PLATELET COUNT 130 X10'3 (140-440); RED CELL DISTRIBUTION WIDTH 14.6 % (11.5-14.5); WHITE BLOOD COUNT 11.8 X10'3 (4.5-11.0)
[2021-06-13 04:49] LABS: PARTIAL THROMBOPLASTIN TIME 26 SECONDS (22-32)
[2021-06-13 05:02] LABS: LARGE PLATELETS MODERATE; PLATELET ESTIMATE DECREASED
[2021-06-13 05:07] LABS: ALANINE AMINOTRANSFERASE 110 U/L (12-78); ALBUMIN 1.4 G/DL (3.4-5.0); ALBUMIN/GLOBULIN RATIO 0.3 (1.1-1.5); ALKALINE PHOSPHATASE 130 IU/L (46-116); ANION GAP 8 (8-16); ASPARTATE AMINO TRANSFERASE 78 U/L (10-37); BILIRUBIN,TOTAL 0.6 MG/DL (0.1-1.0); BLOOD UREA NITROGEN 82 MG/DL (7-18); BUN/CREATININE RATIO 45.1 (5.4-32.0); CALCIUM 7.7 MG/DL (8.5-10.1); CHLORIDE 114 MMOL/L (99-107); CREATINE KINASE 815 U/L (39-308); CREATININE 1.82 MG/DL (0.60-1.10); GLUCOSE 198 MG/DL (70-104); MAGNESIUM 3.7 MG/DL (1.5-2.4); PHOSPHORUS 2.4 MG/DL (2.3-4.5); POTASSIUM 5.3 MMOL/L (3.5-5.1); TOTAL CARBON DIOXIDE 36.4 MMOL/L (24-32); TOTAL PROTEIN 6.2 G/DL (6.4-8.2); eGFR 37 ML/MIN
[2021-06-13 05:10] LABS: SODIUM 158 MMOL/L (135-145)
[2021-06-13] MEDS: propofol 1000mg/100ml bottle 100 ML IV PRN ×2 (05:51→10:10)
--- NOTE | 2021-06-13 06:30 | NUR ---
RECEIVED REPORT FROM JALYN GRIFFIN
--- NOTE | 2021-06-13 06:57 | NUR ---
Problems reprioritized. Patient report given, questions answered & plan of care reviewed with CESILIA GUNDERSON.
[2021-06-13] MEDS: docusate sodium 100mg/10ml UD cup OGT SCH ×2 (08:00→09:51)
[2021-06-13] MEDS: magnesium citrate 296ml oral solution PO SCH (08:00)
[2021-06-13] MEDS ORDERED: FENTANYL-0.9 % NACL/PF 100 ML IV PRN ×2 (08:25→15:20)
[2021-06-13] MEDS: famotidine/PF 10 mg/ml inj IV SCH (09:51)
[2021-06-13] MEDS: nystatin 15 GM powder TP SCH ×2 (09:52→15:22)
[2021-06-13] MEDS: DOPamine 400mg/D5W 250ml 250 ML IV SCH (10:35)
[2021-06-13] MEDS ORDERED: fentaNYL/PF 50MCG/1 ML 2ML syringe IV PRN (15:20)
[2021-06-13] MEDS ORDERED: midazolam 100mg in NS 100ml 100 ML IV PRN (15:20)
[2021-06-13] MEDS ORDERED: midazolam 1 mg/ML 2ml injection IV ONE (15:20)
[2021-06-13] MEDS ORDERED: naloxone 0.4 mg/ml inj IV PRN (15:25)
[2021-06-13] MEDS ORDERED: CADD PCA waste documentation MC PRN (15:25)
--- NOTE | 2021-06-13 18:24 | NUR ---
REPORT GIVEN TO JALYN GRIFFIN
--- NOTE | 2021-06-13 18:25 | NUR ---
LATE ENTRY: EXTUBATED TO COMFORT CARE AT 1635. ASYSTOLIC 1705. LEFT MESSAGE FOR DAUGHTER AT 1645. CALLED [employer] [phone], BODY RELEASED.
== END 2021-06-13 17:05 | DRG 207 ==
LOC: ER 05:40 → ED HOLD 08:08 → CICU 2S 11:18
PROVIDERS: ADMIT Surgery Surgical Critical Care; ATTEND Surgery Surgical Critical Care
PROC: 5A1955Z Respiratory Ventilation, Greater than 96 Consecutive Hours (ICD-10-PCS; principal; 2021-06-06)
PROC: 0BH17EZ Insertion of Endotracheal Airway into Trachea, Via Natural or Artificial Opening (ICD-10-PCS; 2021-06-06)
PROC: 02HV33Z Insertion of Infusion Device into Superior Vena Cava, Percutaneous Approach (ICD-10-PCS; 2021-06-06)
PROC: 0W9930Z Drainage of Right Pleural Cavity with Drainage Device, Percutaneous Approach (ICD-10-PCS; 2021-06-06)
DX: U07.1 COVID-19 (principal); J12.82 Pneumonia due to coronavirus disease 2019; J96.01 Acute respiratory failure with hypoxia; N17.9 Acute kidney failure, unspecified; J44.0 Chronic obstructive pulmonary disease with (acute) lower respiratory infection; J93.82 Other air leak; J93.9 Pneumothorax, unspecified; M62.82 Rhabdomyolysis; E87.0 Hyperosmolality and hypernatremia; E11.65 Type 2 diabetes mellitus with hyperglycemia; E87.5 Hyperkalemia; Z51.5 Encounter for palliative care; E87.6 Hypokalemia
CPT/HCPCS: 32556; 36415; 36556; 36600; 71045; 71250; 76770; 80053; 80069; 81001; 82550; 82570; 82803; 82948; 83036; 83605; 83735; 84132; 84134; 84145; 84300; 84478; 84484; 85007; 85008; 85018; 85025; 85379; 85610; 85730; 86140; 86885; 86900; 86901; 87040; 87081; 87207; 93005; 94002; 94003; 94760; 94799; 96365; 99291; G0378; J0696; J1265; J1644; J1650; J1815; J2704; J2920; J3010; J3490; J7030; J7120